=== PATIENT | male | born 1955 | race Caucasian/White ===

== ENCOUNTER 2020-02-27 07:45 | Day surgery (SDC) | payer MEDICARE ==
[2020-02-27] VITALS (14 sets, daily range): BP systolic 122–156; BP diastolic 55–80
[~2020-02-27] VITALS: Ht 177.8 cm; Wt 73.3 kg
[~2020-02-27 07:45] MED LIST: ALBU8HFA PO; BUDE10.2 INH; BUPIVAcaine/PF 2.5 mg/ml (0.25%) 30ml vial ONE; LIDOcaine 1% 30ml preserv. free vial ONE; TIOT4MIS5 INH; VITAMIN B 17 PO; albuterol 2.5 MG/3 ML nebule NEB ONE; ceFAZolin 2gm in dextrose, iso 50 ML IV ONE; famotidine 20mg tablet PO ONE; ringers solution, lacted 1,000 ML IV SCH
[2020-02-27] MEDS ORDERED: ipratropium/albuterol 3ml nebule NEB ONE (09:15)
[2020-02-27] MEDS ORDERED: fentaNYL/PF 50MCG/1 ML 2ML syringe ONE (10:32)
[2020-02-27] MEDS ORDERED: midazolam 2 mg/2 ml injection ONE (10:32)
[2020-02-27] MEDS ORDERED: sevoflurane 250ml liquid IH ONE (10:33)
[2020-02-27] MEDS ORDERED: ondansetron/PF 4mg/2ml inj ONE (10:46)
[2020-02-27] MEDS ORDERED: propofol inj 20 ML IV ONE (10:46)
[2020-02-27] MEDS ORDERED: rocuronium 10mg/ml inj IV ONE (10:46)
[2020-02-27] MEDS ORDERED: neostigmine methylsulfate 1 MG/ML 10ml vial ONE (10:46)
[2020-02-27] MEDS ORDERED: dexamethasone sod phosphate 4mg/ml inj. ONE (10:46)
[2020-02-27] MEDS ORDERED: glycopyrrolate 0.2mg/ml inj ONE (10:46)
[2020-02-27] MEDS ORDERED: LIDOcaine 2% (20mg/ml) 5ml vial ONE (10:46)
[2020-02-27] MEDS ORDERED: morphine 2 MG/ML inj. syringe IV PRN (11:25)
[2020-02-27] MEDS ORDERED: meperidine/PF 25mg/ml syringe IV PRN ×3 (11:25)
[2020-02-27] MEDS ORDERED: ringers solution, lacted 1,000 ML IV SCH (11:25)
[2020-02-27] MEDS ORDERED: morphine 4 MG/ML inj SYRINge IV PRN (11:25)
[2020-02-27] MEDS ORDERED: proCHLORperazine 10 MG/2 ml inj IV PRN (11:25)
[2020-02-27] MEDS ORDERED: ondansetron/PF 4mg/2ml inj IV PRN (11:25)
[2020-02-27] MEDS ORDERED: ePHEDrine 50MG/ML INJ. ONE (11:32)
[2020-02-27] MEDS ORDERED: acetaminophen 1,000mg/100ml IV 100 ML IV ONE (11:32)
--- NOTE | 2020-02-27 11:55 | NUR ---
Received from OR via [facility], accompanied by Anesthesiologist CONSTANTINE and report given by Anesthesiolgist. PT DROWSY, OXYGENATING WELL ON 10 LPM O2 VIA MASK, NO RESP DISTRESS NOTED. PT DENIES NAUSEA , C/O MILD INCISIONAL PAIN. 3 LARGE BANDAIDS TO ABD TROCAR SITES, CDI. VSS.
[2020-02-27] MEDS ORDERED: HYDROcodone/acetaminophen 5mg/325mg tablet PO PRN (12:05)
--- NOTE | 2020-02-27 15:33 | NUR ---
PATIENT HAS BEEN GETTING UP FREQUENTLY AND GOING TO USE THE TOILET. LAST TRIP WAS APPROXIMATELY 100CC OUT. BLADDER SCAN POST VOID WAS 280. MORE DRINK OFFERED AND PATIENT WILL TO VOID ONCE MORE PRIOR TO LEAVING. Addendum: 02/27/20 at 1535 by Farzad Johnson RN, RN Amended: Links added.
--- NOTE | 2020-02-27 16:00 | NUR ---
ALL DC CRTIERIA FOR HOME HAS BEEN ACHIEVED. PATIENT STATES UNDERSTANDING REGARDING DC INSTRUCTIONS. PATIENT D/C HOME WITH ALL BELONGINGS AND FAMILY GAVE TRANSPORT HOME. VOIDED X2 APPROXIMATELY 100CC EACH TIME. PATIENT STATES THAT ITS ALL GETTING BETTER. STATED HE WILL MOST LIKELY DECLINE TAKING HIS SCRIPT IN FOR PAIN MEDS, AMBULATING INDEPENDENTLY. OUT VIA WHEELCHAIR TO WIFES VEHICLE. Addendum: 02/27/20 at 1618 by Farzad Johnson RN, RN Amended: Links added.
== END 2020-02-27 16:05 | disposition home or self-care (01) ==
LOC: PAS 07:45
PROVIDERS: ATTEND Surgery
DX: K40.20 Bilateral inguinal hernia, without obstruction or gangrene, not specified as recurrent (principal); Z20.828 Contact with and (suspected) exposure to other viral communicable diseases; J43.9 Emphysema, unspecified; Z87.891 Personal history of nicotine dependence; Z72.89 Other problems related to lifestyle; Z79.899 Other long term (current) drug therapy; Z80.8 Family history of malignant neoplasm of other organs or systems; Z83.6 Family history of other diseases of the respiratory system
CPT/HCPCS: 36415; 49650; 71045; 82948; 87635; 93005; 94640; C1781; J0131; J1100; J2001; J2250; J2405; J2704; J2710; J3010; J3490; A4215; A4618; J7120

== ENCOUNTER 2022-02-25 14:35 | Emergency (ER) | payer MEDICARE ==
[~2022-02-25] VITALS: Ht 177.8 cm; Wt 84.0 kg
[~2022-02-25 14:35] MED LIST changes: -BUPIVAcaine/PF 2.5 mg/ml (0.25%) 30ml vial ONE; +IPRA3AMP31 IH; -LIDOcaine 1% 30ml preserv. free vial ONE; -albuterol 2.5 MG/3 ML nebule NEB ONE; -ceFAZolin 2gm in dextrose, iso 50 ML IV ONE; -famotidine 20mg tablet PO ONE; -ringers solution, lacted 1,000 ML IV SCH
[2022-02-25] MEDS ORDERED: normal saline 1000ML IV soln IVB ONE (15:15)
[2022-02-25] MEDS ORDERED: methylPREDNISolone sod succ 125mg/2ml vial IV ONE (15:15)
[2022-02-25] MEDS ORDERED: ipratropium/albuterol 3ml nebule NEB ONE (15:15)
[2022-02-25] MEDS ORDERED: CefTRIAXone/D5W-Rocephin 1gm 50 ML IV ONE (15:35)
[2022-02-25] MEDS ORDERED: azithromycin/NS 500mg/250ml 250 ML IV ONE (15:35)
[2022-02-25] MEDS ORDERED: albuterol 2.5 MG/3 ML nebule CONTNEB PRN (15:40)
[2022-02-25] MEDS ORDERED: albuterol 2.5 MG/3 ML nebule ONE (15:46)
[2022-02-25 16:04] LABS: BASOPHILS % (AUTO) 0.2 % (0-1); EOSINOPHILS % (AUTO) 0.2 % (0-6); HEMATOCRIT 54.6 % (42.0-52.0); LYMPHOCYTES # (AUTO) 1.1 X10'3 (1.1-4.8); LYMPHOCYTES % (AUTO) 15.4 % (21-51); MEAN CORPUSCULAR HEMOGLOBIN 32.8 PG (27.0-31.0); MEAN CORPUSCULAR HGB CONC 33.1 g/dL (33.0-36.5); MEAN PLATELET VOLUME 8.6 FL (7.4-10.4); MONOCYTES # (AUTO) 1.1 X10'3 (0-0.9); MONOCYTES % (AUTO) 15.1 % (2-12); NEUTROPHILS # (AUTO) 4.9 X10'3 (1.8-7.7); NEUTROPHILS % (AUTO) 69.1 % (42-75); PLATELET COUNT 163 X10'3 (140-440); RED BLOOD COUNT 5.52 X10'6 (4.70-6.10); RED CELL DISTRIBUTION WIDTH 13.5 % (11.5-14.5); WHITE BLOOD COUNT 7.2 X10'3 (4.5-11.0)
[2022-02-25 16:06] LABS: HEMOGLOBIN 18.1 g/dl (14.0-17.9)
[2022-02-25 16:30] LABS: ALANINE AMINOTRANSFERASE 60 U/L (12-78); ALBUMIN 3.5 G/DL (3.4-5.0); ALBUMIN/GLOBULIN RATIO 0.9 (1.1-1.5); ALKALINE PHOSPHATASE 194 IU/L (46-116); ANION GAP 7 (8-16); ASPARTATE AMINO TRANSFERASE 40 U/L (10-37); BILIRUBIN,TOTAL 0.5 MG/DL (0.1-1.0); BLOOD UREA NITROGEN 21 MG/DL (7-18); BUN/CREATININE RATIO 23.3 (5.4-32.0); CALCIUM 9.2 MG/DL (8.5-10.1); CHLORIDE 104 MMOL/L (99-107); GLUCOSE 144 MG/DL (70-104); POTASSIUM 4.4 MMOL/L (3.5-5.1); SODIUM 139 MMOL/L (135-145); TOTAL CARBON DIOXIDE 28.4 MMOL/L (24-32); TOTAL PROTEIN 7.5 G/DL (6.4-8.2); eGFR 84 ML/MIN
[2022-02-25] MEDS ORDERED: normal saline 1000ml 1,000 ML IV ONE (16:55)
[2022-02-25 17:13] LABS: D-DIMER 1.42 MG/L FEU (0-0.50)
[2022-02-25] MEDS ORDERED: iohexol 350MG/ML 100ml bottle IV ONE (17:34)
[2022-02-25 18:10] VITALS: BP 142/82
[2022-02-25] MEDS ORDERED: AMOX-580 PO (19:19)
[2022-02-25] MEDS ORDERED: PRED20TA PO (19:19)
[2022-02-25] MEDS ORDERED: amox tr/potassium clavulanate 875/125mg TAB PO ONE (19:20)
== END 2022-02-25 20:37 | disposition home or self-care (01) ==
LOC: ER 14:35
DX: J45.901 Unspecified asthma with (acute) exacerbation (principal); Z20.822 Contact with and (suspected) exposure to COVID-19; J01.00 Acute maxillary sinusitis, unspecified; Z79.899 Other long term (current) drug therapy
CPT/HCPCS: 36415; 71045; 71275; 80053; 83605; 83880; 84145; 84484; 85025; 85379; 87040; 87502; 87503; 87635; 93005; 94644; 96365; 96367; 96375; 99285; C9803; J0456; J0696; J2930; J3490; J7030; Q9967; 94640; 94760

== ENCOUNTER 2024-05-03 18:21 | Emergency (ER) | payer MEDICARE ==
[~2024-05-03] VITALS: Ht 177.8 cm; Wt 91.4 kg
[~2024-05-03 18:21] MED LIST changes: -BUDE10.2 INH; +FLUT1BLS3 PO; -IPRA3AMP31 IH; +LACT1CAP26 PO; -VITAMIN B 17 PO
[2024-05-03 19:00] LABS: CLARITY,URINE BLOODY (Clear); COLOR,URINE RED (Yellow); UA COLLECTION TYPE NON-SPECIFIED
[2024-05-03 19:23] LABS: BACTERIA,URINE FEW /HPF (Neg); RBC,URINE TNTC /HPF (0-2); SQUAMOUS EPITHELIAL CELL,UR NONE SEEN /LPF (FEW)
[2024-05-03 19:25] LABS: BASOPHILS % (AUTO) 0.6 % (0-1); EOSINOPHILS # (AUTO) 0.2 X10'3 (0-0.9); EOSINOPHILS % (AUTO) 3.1 % (0-6); HEMATOCRIT 55.5 % (42.0-52.0); LYMPHOCYTES # (AUTO) 1.3 X10'3 (1.1-4.8); LYMPHOCYTES % (AUTO) 17.9 % (21-51); MEAN CORPUSCULAR HEMOGLOBIN 33.5 PG (27.0-31.0); MEAN CORPUSCULAR HGB CONC 33.6 g/dL (33.0-36.5); MEAN CORPUSCULAR VOLUME 99.8 FL (78-98); MEAN PLATELET VOLUME 8.4 FL (7.4-10.4); MONOCYTES # (AUTO) 0.7 X10'3 (0-0.9); MONOCYTES % (AUTO) 9.8 % (2-12); NEUTROPHILS # (AUTO) 5.1 X10'3 (1.8-7.7); NEUTROPHILS % (AUTO) 68.6 % (42-75); PLATELET COUNT 238 X10'3 (140-440); RED BLOOD COUNT 5.56 X10'6 (4.70-6.10); RED CELL DISTRIBUTION WIDTH 14.2 % (11.5-14.5); WHITE BLOOD COUNT 7.4 X10'3 (4.5-11.0)
[2024-05-03 19:31] LABS: ALANINE AMINOTRANSFERASE 54 U/L (12-78); ALBUMIN 3.6 G/DL (3.4-5.0); ALBUMIN/GLOBULIN RATIO 0.8 (1.1-1.5); ALKALINE PHOSPHATASE 225 IU/L (46-116); ANION GAP 6 (8-16); ASPARTATE AMINO TRANSFERASE 33 U/L (10-37); BILIRUBIN,TOTAL 0.6 MG/DL (0.1-1.0); BLOOD UREA NITROGEN 8 MG/DL (7-18); BUN/CREATININE RATIO 10.1 (10.0-20.0); CALCIUM 9.5 MG/DL (8.5-10.1); CHLORIDE 104 MMOL/L (99-107); CREATININE 0.79 MG/DL (0.60-1.10); GLUCOSE 118 MG/DL (70-104); POTASSIUM 3.7 MMOL/L (3.5-5.1); SODIUM 140 MMOL/L (135-145); TOTAL CARBON DIOXIDE 30.1 MMOL/L (24-32); TOTAL PROTEIN 8.1 G/DL (6.4-8.2); eCRCL 92 ML/MIN; eGFR > 90 ML/MIN
[2024-05-03 19:46] LABS: HEMOGLOBIN 18.7 g/dl (14.0-17.9)
[2024-05-03] MEDS: CefTRIAXone/D5W-Rocephin 1gm 50 ML IV ONE (21:36)
[2024-05-03] MEDS ORDERED: CEFD300C3 PO (22:30)
[2024-05-03 22:46] VITALS: BP 161/86; PULSE 67; RESP 16; TEMP 97.5; O2SAT 95
== END 2024-05-03 22:53 | disposition home or self-care (01) ==
LOC: ER 18:21
DX: N39.0 Urinary tract infection, site not specified (principal); J44.9 Chronic obstructive pulmonary disease, unspecified; Z79.899 Other long term (current) drug therapy; Z72.89 Other problems related to lifestyle
CPT/HCPCS: 36415; 80053; 81001; 85025; 87088; 93005; 96365; 99284; A4615; J0696